=== PATIENT | female | born 1975 | race Caucasian/White ===

== ENCOUNTER → 2016-10-11 | Day surgery (SDC) | payer OTHER, BC ==
[~2016-10-11] VITALS: Ht 172.7 cm; Wt 165.6 kg
[~2016-10-11] MED LIST: ACET50TAOT PO; AMOX875T2 PO; CIPR250T3; GLYCOPYRROLATE INJ 0.2 MG/ML 2 ML VIAL As Ordered ONE; GUAI20TA PO; KETOROLAC 60 MG/2 ML VIAL (J1885) As Ordered ONE; LIDOCAINE 2% INJ 100 MG/5 ML SDV (FOR ANES.) As Ordered ONE; LR 1,000 ML IV SCH; MEPERIDINE INJ 25 MG/ML VIAL (J2175) As Ordered ONE; MEPERIDINE INJ 25 MG/ML VIAL (J2175) IV PRN; METOCLOPRAMIDE INJ 10MG/2ML VIAL (J2765) As Ordered ONE; METOCLOPRAMIDE INJ 10MG/2ML VIAL (J2765) IV ONE; MIDAZOLAM INJ 2 MG/2 ML VIAL (J2250) As Ordered ONE; MORPHINE 4 MG/ML 1ML SYRINGE IV PRN; NEOSTIGMINE 1MG/ML 5 ML SYRINGE (J2710) As Ordered ONE; NORC5TAB PO; NORCO, ANEXSIA 5/325MG TABLET (HYDROcodone/ACETAMINOPHEN) PO PRN; No Historical Meds; ONDANSETRON 4MG/2ML VIAL (J2405) As Ordered ONE; ONDANSETRON 4MG/2ML VIAL (J2405) IV PRN; PERCOCET 5MG/325MG TAB PO PRN; PRED50TA PO; PROPOFOL 200 MG/20 ML VIAL As Ordered ONE; ROCURONIUM BROMIDE 50 MG/5 ML VIAL As Ordered ONE; ROPIvacaine 0.5% 30 ML INJECTION (J2795) As Ordered ONE; VICO5TAB; dexameTHASONE 4 MG/ML 1ML VIAL (J1100) As Ordered ONE; fentaNYL 100 MCG/2 ML INJECTION (J3010) As Ordered ONE; fentaNYL 100 MCG/2 ML INJECTION (J3010) IV PRN
--- NOTE | 2016-10-11 09:01 | RO ---
DATE OF PROCEDURE: 10/11/2016 PREPROCEDURE DIAGNOSIS: Left knee internal derangement, possible medial meniscus tear with some degenerative arthritis. POSTPROCEDURE DIAGNOSIS: Degenerative arthritis of the left knee. PROCEDURE: Chondroplasty of the medial femoral condyle. Chondroplasty of the trochlea. Chondroplasty of the patella. Release and debridement of the infrapatellar plica and ligamentum mucosa left knee. SURGEON: Dr. Marino Fischer BAND MANAGER: ANESTHESIA: General endotracheal tube anethesia. COMPLICATIONS: None. 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 The medial and lateral menisci were not palpably torn. The anterior cruciate ligament (ACL) and posterior cruciate ligament (PCL) were intact. DESCRIPTION OF PROCEDURE: Antibiotics were given intravenously preoperatively and a successful general endotracheal tube anesthetic was established. No tourniquet was utilized because of the size of her leg. Her left lower extremity was then prepped and draped in the usual sterile fashion and then elevated. After the appropriate time out, insufflation portal was established superomedially, the scope was introduced anterolaterally and working portal was anteromedial. We introduced the arthroscope and explored the joint with the findings as noted above. After carefully probing and palpating the posteriorly around the medial meniscus and inspecting the lateral meniscus and finding no tear, I proceeded with a chondroplasty with the shaver of the medial femoral condyle, just removing the loose fragmenting articular cartilage pieces from the medial femoral condyle. There was no full thickness chondral defect. Then, I addressed the trochlea and there was a significant amount of flapping and instability of parts of the trochlea surrounding a large chondral defect which was not quite full thickness. There was just still a fine layer of cartilage attached to the subchondral bone, but the edges were quite unstable and I used a combination of the #4-0 curved shaver and the Barton curette to debride back the edges of this trochlear chondral defect to a stable rim. I alternated my visualization and working portals between the lateral and medial in order to change the angle of attack with the shaver to get a good smooth debridement. The patella was then addressed as well, both from the medial and the lateral working portals to smooth off the undersurface of the patella of any loose fragmenting articular cartilage. Photographs were taken before and afterward. The ligamentum mucosum and infrapatellar plica was then released as well to help decompress the patellofemoral articulation as best as possible. No other pathology was identified that I could treat arthroscopically. At this point, I copiously irrigated out the joint and instilled ropivacaine and covered the portals with Adaptic, dry sterile bulky dressing and then she was awakened from general endotracheal tube anesthesia after having tolerated the procedure well and transferred to the recovery room in stable condition. There were no intraoperative complications.
[2016-10-11 12:05] VITALS: BP 142/62
== END | disposition home or self-care (01) ==
LOC: M SDC 05:51
PROVIDERS: ATTEND Orthopaedic Surgery
DX: M17.12 Unilateral primary osteoarthritis, left knee (principal); S83.412D Sprain of medial collateral ligament of left knee, subsequent encounter; K58.9 Irritable bowel syndrome, unspecified; G89.29 Other chronic pain; R06.83 Snoring; M54.5 Low back pain; M66.9 Spontaneous rupture of unspecified tendon; Z79.899 Other long term (current) drug therapy
CPT/HCPCS: 29877; J0690; J1100; J1885; J2175; J2250; J2405; J2710; J2765; J2795; J3010

== ENCOUNTER → 2018-05-07 | Outpatient (REF) | payer BC ==
[2018-05-09 14:18] LABS: HPV HYBRID CAPTURE II Negative (Negative)
== END ==
LOC: M LAB REF 17:22
DX: Z12.4 Encounter for screening for malignant neoplasm of cervix (principal)
CPT/HCPCS: G0123

== ENCOUNTER → 2018-05-29 | Outpatient (CLI) | payer BC | LOC: M RAD 12:40 | DX: R10.2 Pelvic and perineal pain (principal); Z12.31 Encounter for screening mammogram for malignant neoplasm of breast; N93.8 Other specified abnormal uterine and vaginal bleeding | CPT/HCPCS: 76856 ==

== ENCOUNTER → 2018-10-02 | Outpatient (CLI) | payer BC ==
[~2018-10-02] MED LIST changes: +ACET500T15 PO; -ACET50TAOT PO; -GLYCOPYRROLATE INJ 0.2 MG/ML 2 ML VIAL As Ordered ONE; -KETOROLAC 60 MG/2 ML VIAL (J1885) As Ordered ONE; -LIDOCAINE 2% INJ 100 MG/5 ML SDV (FOR ANES.) As Ordered ONE; -LR 1,000 ML IV SCH; -MEPERIDINE INJ 25 MG/ML VIAL (J2175) As Ordered ONE; -MEPERIDINE INJ 25 MG/ML VIAL (J2175) IV PRN; -METOCLOPRAMIDE INJ 10MG/2ML VIAL (J2765) As Ordered ONE; -METOCLOPRAMIDE INJ 10MG/2ML VIAL (J2765) IV ONE; -MIDAZOLAM INJ 2 MG/2 ML VIAL (J2250) As Ordered ONE; -MORPHINE 4 MG/ML 1ML SYRINGE IV PRN; -NEOSTIGMINE 1MG/ML 5 ML SYRINGE (J2710) As Ordered ONE; +NORC1TAB4 PO; -NORC5TAB PO; -NORCO, ANEXSIA 5/325MG TABLET (HYDROcodone/ACETAMINOPHEN) PO PRN; -ONDANSETRON 4MG/2ML VIAL (J2405) As Ordered ONE; -ONDANSETRON 4MG/2ML VIAL (J2405) IV PRN; -PERCOCET 5MG/325MG TAB PO PRN; -PROPOFOL 200 MG/20 ML VIAL As Ordered ONE; -ROCURONIUM BROMIDE 50 MG/5 ML VIAL As Ordered ONE; -ROPIvacaine 0.5% 30 ML INJECTION (J2795) As Ordered ONE; -dexameTHASONE 4 MG/ML 1ML VIAL (J1100) As Ordered ONE; -fentaNYL 100 MCG/2 ML INJECTION (J3010) As Ordered ONE; -fentaNYL 100 MCG/2 ML INJECTION (J3010) IV PRN
[2018-10-02 13:21] LABS: ALBUMIN 3.4 GM/DL (3.2-5.2); ALT/SGPT 21 U/L (12-78); BILIRUBIN,DIRECT < 0.1 MG/DL (0.0-0.2); BILIRUBIN,TOTAL 0.3 MG/DL (0.2-1.0); FREE T4 0.84 NG/DL (0.76-1.46); TOTAL 25(OH) VITAMIN D 17.2 NG/ML (30.0-100.0); TOTAL PROTEIN 7.2 GM/DL (6.4-8.2)
== END ==
LOC: M LAB 11:58
PROVIDERS: ATTEND Physician Assistant Medical
DX: E66.01 Morbid (severe) obesity due to excess calories (principal); R00.2 Palpitations; K58.0 Irritable bowel syndrome with diarrhea

== ENCOUNTER → 2018-10-02 | Outpatient (REF) ==
[2018-10-02 12:47] LABS: HEMATOCRIT 41.9 % (36.0-47.0); HEMOGLOBIN 13.9 g/dl (12.0-15.5); MEAN CORPUSCULAR HEMOGLOBIN 29.9 pg (27.0-33.0); MEAN CORPUSCULAR HGB CONC 33.2 g/dl (32.0-36.5); MEAN CORPUSCULAR VOLUME 90.1 fl (80.0-96.0); PLATELET COUNT, AUTOMATED 278 10^3/uL (150-450); RED BLOOD COUNT 4.65 10^6/uL (4.00-5.40); WHITE BLOOD COUNT 10.1 10^3/uL (4.0-10.0)
[2018-10-02 12:49] LABS: APPEARANCE, URINE CLEAR (CLEAR); BACTERIA, URINE AUTO 1+ (NEGATIVE); BILIRUBIN, URINE AUTO NEGATIVE (NEGATIVE); BLOOD, URINE BLOOD NEGATIVE (NEGATIVE); COLOR, URINE YELLOW (YELLOW); GLUCOSE, URINE (UA) AUTO NEGATIVE (NEGATIVE); KETONE, URINE AUTO NEGATIVE (NEGATIVE); LEUKOCYTE ESTERASE, URINE AUTO NEGATIVE (NEGATIVE); MUCUS, URINE SMALL (NEGATIVE); NITRITE, URINE AUTO NEGATIVE (NEGATIVE); PROTEIN, URINE AUTO NEGATIVE (NEGATIVE); RBC, URINE AUTO 2 /HPF (0-3); SPECIFIC GRAVITY URINE AUTO 1.009 (1.002-1.035); SQUAMOUS EPITHELIAL CELL UR AU 0 /HPF (0-6); UROBILINOGEN, URINE AUTO 0.2 mg/dL (0.0-2.0); WBC, URINE AUTO 1 /HPF (0-3)
[2018-10-02 13:22] LABS: BLOOD UREA NITROGEN 12 MG/DL (7-18); CARBON DIOXIDE LEVEL 28 MEQ/L (21-32); CHLORIDE LEVEL 101 MEQ/L (98-107); CHOLESTEROL LEVEL 186 MG/DL (<200); CHOLESTEROL RISK RATIO 3.795 (<5); GLOMERULAR FILTRATION RATE > 60.0 (>58); GLUCOSE, FASTING 90 MG/DL (70-100); HDL CHOLESTEROL 49 MG/DL (>40); LDL CHOLESTEROL 102 MG/DL (<100); NON-HDL-C 137 MG/DL; POTASSIUM SERUM 4.1 MEQ/L (3.5-5.1); SODIUM LEVEL 137 MEQ/L (136-145); TRIGLYCERIDES LEVEL 173 MG/DL (<150)
--- NOTE | 2018-10-02 19:35 | ECGEPIP ---
Stationary ECG Study [facility] Test Date: 2018-10-02 Pat Name: LIMA AYALA Department: Room: - Gender: F Cut Off Saw Operator: TYLER : 1975 Requested By: Isaura Cm Order Number: [id number] Reading MD: Nazario Willis Measurements Intervals Gause Rate: 70 P: 9 MD: 134 QRS: 10 QRSD: 88 T: 31 QT: 407 QTc: 442 Interpretive Statements Normal sinus rhythm Normal EKG Comparison tracing not on file Electronically Signed On 10-02-2018 19:35:01 EST by Nazario Willis
== END ==
LOC: M LAB 12:02
PROVIDERS: ATTEND Physician Assistant Medical
DX: Z00.00 Encounter for general adult medical examination without abnormal findings (principal)

== ENCOUNTER → 2019-01-03 | Outpatient (CLI) | payer BC ==
[~2019-01-03] MED LIST changes: -NORC1TAB4 PO; +NORC1TAB7 PO; +VITA50005 PO
--- NOTE | 2019-01-03 14:12 | REP ---
Right hand series: Four views. History: Cellulitis. Findings: Four views right hand demonstrate overall normal mineralization. Joint spaces are preserved. No erosive changes seen. Soft tissues are unremarkable. Impression: Negative radiographs of the right hand. Electronically Signed by Srini Meehan MD 01/03/2019 02:03 P
== END ==
LOC: M ADAMS 13:23
PROVIDERS: ATTEND Physician Assistant
DX: Z87.2 Personal history of diseases of the skin and subcutaneous tissue (principal); W55.01XA Bitten by cat, initial encounter; Y92.89 Other specified places as the place of occurrence of the external cause

== ENCOUNTER 2019-01-04 11:48 | Emergency (ER) | payer BC, OTHER ==
[~2019-01-04] VITALS: Ht 172.7 cm; Wt 175.0 kg
[~2019-01-04 11:48] MED LIST changes: -VITA50005 PO
[2019-01-04] MEDS ORDERED: RABIES VACCINE HUMAN 2.5 INTERNATIONAL UNITS/ML VIAL (90675) IM ONE (12:30)
[2019-01-04] MEDS ORDERED: RABIES IMMUNE GLOBULIN 1500 INTERNATIONAL UNIT/5ML VIAL (90375) IM ONE (12:30)
[2019-01-04 14:03] VITALS: BP 90/49
== END 2019-01-04 14:02 | disposition home or self-care (01) ==
LOC: M ED 11:48
DX: Z20.3 Contact with and (suspected) exposure to rabies (principal); Z23 Encounter for immunization; S61.451A Open bite of right hand, initial encounter; S61.051A Open bite of right thumb without damage to nail, initial encounter; W55.01XA Bitten by cat, initial encounter; Y92.9 Unspecified place or not applicable; Y93.9 Activity, unspecified; Y99.9 Unspecified external cause status; Z87.01 Personal history of pneumonia (recurrent); K58.9 Irritable bowel syndrome, unspecified; Z87.442 Personal history of urinary calculi; Z79.899 Other long term (current) drug therapy

== ENCOUNTER 2019-01-07 14:07 | Emergency (ER) | payer BC, OTHER ==
[~2019-01-07] VITALS: Ht 172.7 cm; Wt 175.0 kg
[2019-01-07 14:09] VITALS: BP 140/67
[2019-01-07] MEDS ORDERED: VITA50005 PO (14:15)
[2019-01-07] MEDS ORDERED: RABIES VACCINE HUMAN 2.5 INTERNATIONAL UNITS/ML VIAL (90675) IM ONE (14:30)
== END 2019-01-07 14:51 | disposition home or self-care (01) ==
LOC: M ED 14:07
DX: Z23 Encounter for immunization (principal); Z20.3 Contact with and (suspected) exposure to rabies; K58.9 Irritable bowel syndrome, unspecified

== ENCOUNTER 2019-01-11 07:48 | Emergency (ER) | payer BC, OTHER ==
[~2019-01-11] VITALS: Ht 172.7 cm; Wt 175.0 kg
[~2019-01-11 07:48] MED LIST changes: +VITA50005 PO
[2019-01-11] MEDS ORDERED: RABIES VACCINE HUMAN 2.5 INTERNATIONAL UNITS/ML VIAL (90675) IM ONE (08:30)
[2019-01-11 09:12] VITALS: BP 143/65
== END 2019-01-11 09:13 | disposition home or self-care (01) ==
LOC: M ED 07:48
DX: Z20.3 Contact with and (suspected) exposure to rabies (principal); Z23 Encounter for immunization

== ENCOUNTER 2019-01-18 08:57 | Emergency (ER) | payer BC, OTHER ==
[~2019-01-18] VITALS: Ht 172.7 cm; Wt 175.0 kg
[2019-01-18 08:59] VITALS: BP 140/71
[2019-01-18] MEDS ORDERED: RABIES VACCINE HUMAN 2.5 INTERNATIONAL UNITS/ML VIAL (90675) IM ONE (09:30)
== END 2019-01-18 10:00 | disposition home or self-care (01) ==
LOC: M ED 08:57
DX: Z23 Encounter for immunization (principal); Z20.3 Contact with and (suspected) exposure to rabies

== ENCOUNTER → 2019-04-17 | Outpatient (REF) | payer BC | LOC: M SFHCADAM 11:05 | PROVIDERS: ATTEND Physician Assistant Medical | DX: E55.9 Vitamin D deficiency, unspecified (principal) ==

== ENCOUNTER → 2019-10-08 | Outpatient (REF) | payer BC | LOC: M SFHCADAM 16:35 | PROVIDERS: ATTEND Physician Assistant Medical | DX: E55.9 Vitamin D deficiency, unspecified (principal) ==

== ENCOUNTER → 2020-10-05 | Outpatient (CLI) | payer SELFPAY | LOC: M LABSMTC 13:22 | PROVIDERS: ATTEND Pediatrics | DX: Z20.822 Contact with and (suspected) exposure to COVID-19 (principal) ==

== ENCOUNTER → 2020-10-13 | Outpatient (CLI) | payer SELFPAY | LOC: M LABSMTC 12:12 | PROVIDERS: ATTEND Pediatrics | DX: Z20.822 Contact with and (suspected) exposure to COVID-19 (principal) ==

== ENCOUNTER → 2020-10-20 | Outpatient (CLI) | payer SELFPAY | LOC: M LABSMTC 11:56 | PROVIDERS: ATTEND Pediatrics | DX: Z20.822 Contact with and (suspected) exposure to COVID-19 (principal) ==

== ENCOUNTER → 2020-10-27 | Outpatient (CLI) | payer SELFPAY | LOC: M LABSMTC 12:21 | PROVIDERS: ATTEND Pediatrics | DX: Z20.822 Contact with and (suspected) exposure to COVID-19 (principal) ==

== ENCOUNTER → 2020-11-03 | Outpatient (CLI) | payer SELFPAY | LOC: M LABSMTC 12:09 | PROVIDERS: ATTEND Pediatrics | DX: Z11.52 Encounter for screening for COVID-19 (principal) ==

== ENCOUNTER → 2020-11-10 | Outpatient (CLI) | payer SELFPAY | LOC: M LABSMTC 13:53 | PROVIDERS: ATTEND Pediatrics | DX: Z11.52 Encounter for screening for COVID-19 (principal) ==

== ENCOUNTER → 2020-11-17 | Outpatient (CLI) | payer SELFPAY | LOC: M LABSMTC 13:29 | PROVIDERS: ATTEND Pediatrics | DX: Z20.828 Contact with and (suspected) exposure to other viral communicable diseases (principal) ==

== ENCOUNTER → 2020-11-24 | Outpatient (CLI) | payer SELFPAY | LOC: M LABSMTC 12:10 | PROVIDERS: ATTEND Pediatrics | DX: Z11.52 Encounter for screening for COVID-19 (principal) ==

== ENCOUNTER → 2020-12-01 | Outpatient (CLI) | payer SELFPAY | LOC: M LABSMTC 12:17 | PROVIDERS: ATTEND Pediatrics | DX: Z20.828 Contact with and (suspected) exposure to other viral communicable diseases (principal); Z11.59 Encounter for screening for other viral diseases ==

== ENCOUNTER → 2020-12-06 | Outpatient (CLI) | payer SELFPAY | LOC: M LABSMTC 08:08 | PROVIDERS: ATTEND Pediatrics | DX: Z20.822 Contact with and (suspected) exposure to COVID-19 (principal) ==

== ENCOUNTER → 2020-12-15 | Outpatient (CLI) | payer SELFPAY | LOC: M LABSMTC 12:02 | PROVIDERS: ATTEND Pediatrics | DX: Z20.828 Contact with and (suspected) exposure to other viral communicable diseases (principal); Z11.59 Encounter for screening for other viral diseases ==

== ENCOUNTER → 2020-12-22 | Outpatient (CLI) | payer SELFPAY | LOC: M LABSMTC 13:32 | PROVIDERS: ATTEND Pediatrics | DX: Z20.828 Contact with and (suspected) exposure to other viral communicable diseases (principal) ==

== ENCOUNTER → 2020-12-30 | Outpatient (CLI) | payer SELFPAY | LOC: M LABSMTC 14:01 | PROVIDERS: ATTEND Pediatrics | DX: Z20.828 Contact with and (suspected) exposure to other viral communicable diseases (principal) ==